=== PATIENT | male | born 1935 | race Caucasian/White ===

== ENCOUNTER 2017-04-11 14:31 | Inpatient (IN) | payer OTHER ==
[~2017-04-11] VITALS: Ht 175.3 cm; Wt 81.2 kg
--- NOTE | 2017-04-11 15:14 | NUR ---
PT BIB FAMILY C/C RT LOWER ABD PAIN STS STARTED THIS AM DR ARRIAGA AT BEDSIDE TO CHIP
--- NOTE | 2017-04-11 15:25 | NUR ---
PLEASE ENTER FULL NAMES OF MINISTER HELPER/RN Patient data collected by (MINISTER HELPER): Doni PEREZ Assessment reviewed and completed by (RN): Danielle SIMPSON
--- NOTE | 2017-04-11 15:42 | NUR ---
EMG TECHNICIAN AT BEDSIDE FOR BLOOD DRAW
[2017-04-11 16:01] LABS: BASOPHIL % 0.3 % (0-2); PLATELET COUNT 235 x10^3mcL (130-400)
[2017-04-11 16:03] LABS: RED CELL DISTRIBUTION WIDTH 14.6 % (11.5-14.5)
[2017-04-11 16:11] LABS: CALCIUM 9.2 mg/dL (8.5-10.1); CARBON DIOXIDE 32.5 mmol/L (21-32); CHLORIDE SERUM 103 mmol/L (98-107); CREATININE SERUM 1.1 mg/dL (0.7-1.3); GLUCOSE SERUM 122 mg/dL (74-106); POTASSIUM SERUM 3.9 mmol/L (3.5-5.1); SODIUM SERUM 141 mmol/L (136-145)
[2017-04-11 16:21] LABS: ALBUMIN 4.1 g/dL (3.4-5.0); ALKALINE PHOSPHATASE 53 U/L (46-116); ALT/SGPT 23 U/L (16-63); AST/SGOT 19 U/L (15-37); BILIRUBIN TOTAL 0.4 mg/dL (0.20-1.00)
[2017-04-11 16:22] LABS: C REACTIVE PROTEIN < 0.2 mg/dL (<=0.9)
[2017-04-11 16:35] LABS: T3 TOTAL 0.85 ng/mL
[2017-04-11 16:50] LABS: FREE T4 1.17 ng/dL (0.76-1.46); FREE THYROXINE INDEX 3.6 ug/dL (1.4-4.5); T4(THYROXINE) 10.4 ug/dL (4.7-13.3)
[2017-04-11 16:51] LABS: ERYTHROCYTE SED RATE 11 mm/hr (0-20)
[2017-04-11 16:53] LABS: CK-MB 2.3 ng/mL (0-3.6)
--- NOTE | 2017-04-11 16:56 | NUR ---
DR ARRIAGA AT BEDSIDE TO GO OVER PLAN OF CARE
[2017-04-11 17:55] VITALS: BP 135/81
[2017-04-11 18:15] LABS: MAGNESIUM 2.4 mg/dL (1.8-2.4); PHOSPHOROUS 2.8 mg/dL (2.5-4.9)
[2017-04-11 18:21] LABS: CHOLESTEROL/HDL RATIO 3.8
[2017-04-11] MEDS ORDERED: LATANOPROST2.5 ML OU (18:23)
[2017-04-11] MEDS ORDERED: DORZOLAMIDE HYD10 ML OU (18:23)
[2017-04-11] MEDS ORDERED: TRAZODONE50 M1 PO (18:24)
[2017-04-11] MEDS ORDERED: SYMBICORT1 AE3 INH (18:25)
--- NOTE | 2017-04-11 19:02 | NUR ---
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
[2017-04-11 19:06] VITALS: BP 157/87
--- NOTE | 2017-04-11 19:55 | NUR ---
REPORT FROM DAY SHIFT,PATIENT NOT ADMITTED YET,CHARGE NURSE SAY PATIENT GOING FOR SURGERY. AT BEDSIDE DEMANDING FOR EYEDROPS.
--- NOTE | 2017-04-11 19:55 | NUR ---
REINALDO CareyWILL BE HERE TO HELP,TO ADMIT.PATIENT.THANKS.
[2017-04-11 20:06] VITALS: BP 148/86
--- NOTE | 2017-04-11 20:16 | NUR ---
RECEIVED PATIENT FROM ED VIA GUERNEY, PATIENT ALERT AND ORIENTED, FAMILY ATBEDSIDE, NO C/O PAIN AT THIS TIME, IV ACCESS TO RIGHT HAND WNL, TELE# 10 SR, ORIENTED PATIENT TO ROOM AND SURROUNDINGS, BED IN LOW POSITION, BED RAILS UP X 2, CALL LIGHT WITHIN REACH, WILL ENDORSE CARE TO PRIMARY NURSE HERNANDEZ THOMPSON
--- NOTE | 2017-04-11 20:32 | NUR ---
LIANE LAMB GIVEN,CHECKLIST BEING COMPLETED BY LEANN.CONSENT SIGNED BY PATIENT AFTER DR LENTZ EXPLAINED PROCEDURE.SEDATION WILL BE SIGN DOWNSTAIR IN OR.REMAINS NPO.HEPLOCK 22. INTACT FROM ER.AWAITING FOR OFFENDER EMPLOYMENT SPECIALIST.
[2017-04-11 20:46] VITALS: BP 148/86
--- NOTE | 2017-04-11 20:49 | NUR ---
REPORT GIVEN TO ANA,ALSO MICHAEL FROM SURGERY.
--- NOTE | 2017-04-11 20:49 | NUR ---
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
--- NOTE | 2017-04-11 23:52 | NUR ---
PACU CALLED,PATIENT COMING BACK FROM OR,PATIENT HAD OPEN APPY,DRESSING INTACT REPORTED WITH DRESSING.
--- NOTE | 2017-04-11 23:55 | NUR ---
RECEIVED FROM PACU,PUT IN BED COMFORTABLY,VITAL SIGNS STABLE.DRESSING R LOWER QUAD.ATB STARTED.
--- NOTE | 2017-04-12 00:14 | NUR ---
PATIENT NPO XMED,GIVEN PAIN SHOT TORADOL IVP
[2017-04-12 00:51] LABS: UA SPECIFIC GRAVITY >=1.030 (1.005-1.035); microscopic required? YES; urine erythrocyte NEGATIVE (NEGATIVE)
--- NOTE | 2017-04-12 00:53 | NUR ---
SCD INTACT,WILL START HEPARIN SQ IN AM,POST OP PROTOCOL.
--- NOTE | 2017-04-12 01:14 | NUR ---
PATIENT SAYS HE WANTS ANOTHER PAIN MED,SAYS SURGERY SITE HURTING,GIVEN NORCO AT THIS TIME.
--- NOTE | 2017-04-12 01:22 | NUR ---
PATIENT YELLING NOW,WANTING ANOTHER PAIN MED,WAS JUST GIVEN PAIN PILL,WILL GIVE ANOTHER PAIN SHOT NOW,MSO4 2 MG.
--- NOTE | 2017-04-12 01:26 | NUR ---
CHARGE NURSE BUSHRA MADE AWARE THAT PATIENT JUST GIVEN MSO4 2 MG,METALLURGICAL OR MATERIALS TECHNICIAN ALSO AWARE,WAS GETTING REPORT FROM LEANN.
--- NOTE | 2017-04-12 02:15 | NUR ---
CHECKED AT THIS TIME AFTER MSO4,VERY EFFECTIVE,SLEEPING,BREATHING EASY.CALL LIGHT IN REACH.
--- NOTE | 2017-04-12 02:27 | NUR ---
CALLING UPDATE ABOUT .SAYS SHE WILL BE IN LATER TO VISIT.
--- NOTE | 2017-04-12 03:19 | NUR ---
NEW IV SITE L WRIST 20 GUAGE WITH GOOD BLOOD RETURN.IV SITE PREVIOUSLY PULLED OUT ACCIDENTALLY BY PATIENT.
--- NOTE | 2017-04-12 03:27 | NUR ---
PATIENT WANTING ANOTHER PAIN SHOT,REMINDED IT IS NOT TIME YET.WILL GIVE IN ANOTHER ONE HOUR.
--- NOTE | 2017-04-12 04:35 | NUR ---
BED ALARM ON,FOUND PATIENT SITTING AT EDGE OF BED,SAYS HE HAS TO URINATE,MADE AWARE TTHAT HE HAS A VILLAGRAN CATH.CLOUDY URINE.ATB SCHEDULED.
--- NOTE | 2017-04-12 04:39 | NUR ---
SURGERY SITE PAIN,GIVEN MSO4 2 MG.R LOWER QUADRANT DRESSING DRY AND INTACT.NO BLEEDING NOTED.BED ALARM BACK FOR SAFETY.
[2017-04-12 05:24] VITALS: BP 98/63
--- NOTE | 2017-04-12 05:52 | NUR ---
PATIENT AMBULATED TO RESTROOM,WITH ASSIST,REMINDED HE HAS VILLAGRAN.NOT PASSING GAS YET.DRESSING INTACT.WILL ENDORSE TO NEXT SHIFT.
--- NOTE | 2017-04-12 06:23 | NUR ---
PATIENT CALLED.SHE SAYS THAT SHE HAS ANOTHER EYEDROP AT HOME,SHE WILL BRING IT,WANTED GIVEN TO PATIENT.WILL ENDORSE TO NEXT SHIFT.
[2017-04-12 07:01] LABS: BASOPHIL % 0.1 % (0-2); PLATELET COUNT 221 x10^3mcL (130-400); RED CELL DISTRIBUTION WIDTH 14.3 % (11.5-14.5)
--- NOTE | 2017-04-12 07:05 | NUR ---
AWAKE AND ALERT, ORIENTED X3, ABLE TO MAKE NEEDS KNOWN, FOLOWS SIMPLE COMMANDS, NOTED W/ RESTLESS LEGS, REPORTS "MY LEGS ALWAYS SHAKE," ACTIVE BOWEL SOUNDS X4 QUADS, DRY DRESSING NOTED AT RLQ, NO ACTIVE BLEEDING OR DRAINAGE NOTED, REPORTS ABD PAIN 2/10, INCREASED WITH MOVEMENT, DENIES N&V, ON TELE #10 SR ON MONITOR, DENIES HEART RELATED PAIN OR DISCOMFORT, IV AT L/WRIST INFUSING NS AT 120ML/HR, VILLAGRAN CATH DRAINING YELLOW URINE TO GRAVITY, REORIENTED TO ROOM AND CALL LIGHT, BED ALARM ON, PT IS NEAR NURSING STATION, BED AT LOWEST SETTING, WILL CONTINUE TO PROVIDE CARE.
[2017-04-12 07:13] VITALS: Ht 175.3 cm; Wt 81.2 kg
[2017-04-12 07:30] LABS: CALCIUM 8.4 mg/dL (8.5-10.1); CARBON DIOXIDE 29.6 mmol/L (21-32); CHLORIDE SERUM 106 mmol/L (98-107); CREATININE SERUM 1.3 mg/dL (0.7-1.3); GLUCOSE SERUM 119 mg/dL (74-106); MAGNESIUM 2.1 mg/dL (1.8-2.4); PHOSPHOROUS 4.2 mg/dL (2.5-4.9); POTASSIUM SERUM 4.1 mmol/L (3.5-5.1); SODIUM SERUM 141 mmol/L (136-145)
[2017-04-12 09:30] VITALS: BP 105/56
--- NOTE | 2017-04-12 10:38 | NUR ---
AT BEDSIDE, PATIENT RESTING IN BED, REPORTS ABD PAIN 2/10, CONTROLLED AT THIS LEVEL, ABLE TO TAKE PO MEDS THIS AM, CALL LIGHT WITHIN REACH, WILL CONTINUE TO PROVIDE CARE.
--- NOTE | 2017-04-12 10:40 | NUR ---
PATIENTS'S REQUESTING TO SPEAK WITH MD, DR MCKINNON WILL COMING UP TO THE ROOM.
--- NOTE | 2017-04-12 13:06 | NUR ---
C/O ABD PAIN 8/10, ASSISTED TO POSITION OF COMFORT, PAIN GREEN CHAIN WORKER ORDERED, AT BEDSIDE, WILL CONTINUE TO MONITOR FOR SAFETY AND COMFORT.
[2017-04-12 14:05] VITALS: BP 97/56
[2017-04-12 18:40] VITALS: BP 98/54
--- NOTE | 2017-04-12 18:40 | NUR ---
TOLERATING CLEAR LIQUIDS MEAL, REPORTS ABD PAIN 3/10, WORSE WITH MOVEMENT, ASSISTED TO CHAIR FOR DINNER, SURGICAL SITE WITH FIRST DRESSING, DRY, NO ACTIVE BLEEDING OR DRAINAGE NOTED, D/C VILLAGRAN CATH AND AMBULATE PT 24HRS POST SURGERY, PER DR SPANN, WILL BE BRINGING PATIENT'S GLAUCOMA MEDICATIONS IN THE MORNING, NO OTHER SIGNIFICANT CHANGES NOTED, CARE ENDORSED TO NIGHT NURSE.
--- NOTE | 2017-04-12 19:59 | NUR ---
PT IS A/O X3, WITH FORGETFUL, VERBAL RESPONSIVE, ABLE TO TELL WHAT HE NEEDS, LUNG SOUND CLEAR BILATERAL, NO COUGH, NO SOB, PT IS ON 2L/MIN O2 VIA NC. PO2 98%, PT IS ON TELE 10, ST. DENY ANY CHEST PAIN OR DISCOMFORT, BOWEL SOUND PRESENT ALL 4 QUADRANTS, NO DISTENTION, NO TENDER. S/P SUGERY AT RIGHT LOW QUADRANTS, COVERED WITH DRY DRESSING, NO BLEEDING, NO DRAINAGE, PEDAL PULSE PRESENT BOTH FEET, NO EDEMA NOTED, IV AT LEFT WRIST, NO LEAKING, NO INFILTRATION, ALL ADLS ASSIST, ALL NEED MET, CALL LIGHT IN REACH, WILL CONTINUE TO MONITOR.
[2017-04-12 20:57] VITALS: BP 98/58
[2017-04-13 05:16] VITALS: BP 118/66
--- NOTE | 2017-04-13 05:31 | NUR ---
PT IS A/O X2, FORGETFUL, CONFUSED, NO RESPIRATORY DISTRESS, NO S/S OF CHEST PAIN, C/O ABD PAIN WHEN TOUCH, FINISHED BLADDER TRAIN, AND REMOVED VILLAGRAN CATH. IV AT LEFT WRIST IS INFILTRATION. AND RE INSERT THE IV TO RIGHT FA, DR. WIGGINS MADE AWARE, ALL ADLS ASSIST, ALL NEED MET, CALL LIGHT IN REACH, WILL CONTINUE TO MONITOR.
[2017-04-13 07:24] LABS: CALCIUM 8.4 mg/dL (8.5-10.1); CARBON DIOXIDE 27.4 mmol/L (21-32); CHLORIDE SERUM 104 mmol/L (98-107); CREATININE SERUM 1.2 mg/dL (0.7-1.3); GLUCOSE SERUM 137 mg/dL (74-106); MAGNESIUM 2.2 mg/dL (1.8-2.4); PHOSPHOROUS 3.3 mg/dL (2.5-4.9); SODIUM SERUM 138 mmol/L (136-145)
--- NOTE | 2017-04-13 07:38 | NUR ---
RECEIVED PT FROM NIGHT NURSE IN NO ACUTE DISTRESS. RESPIRATIONS EVEN AND UNLABORED ON 4L VIA NC. AAOX4. IVF INFUSING AT BEDSIDE. BED IN LOWEST POSITION. CALL LIGHT WITHIN REACH. WILL CONTINUE TO MONITOR.
[2017-04-13 08:11] LABS: BASOPHIL % 0.9 % (0-2); PLATELET COUNT 197 x10^3mcL (130-400); RED CELL DISTRIBUTION WIDTH 14.3 % (11.5-14.5)
[2017-04-13 08:52] VITALS: BP 107/66
[2017-04-13 12:17] VITALS: BP 141/71
--- NOTE | 2017-04-13 12:51 | NUR ---
PT SITTING UP IN CHAIR AT BEDSIDE IN NO ACUTE DISTRESS. RESPIRATIONS EVEN AND UNLABORED ON 3L VIA NC. AAOX4. VILLAGRAN IN PLACE, DRAINING YELLOW URINE. IVF INFUSING AT BEDSIDE. FAMILY AT BEDSIDE. BED IN LOWEST POSITION. CALL LIGHT WITHIN REACH. WILL CONTINUE TO MONITOR.
[2017-04-13 16:40] VITALS: BP 137/62
--- NOTE | 2017-04-13 18:43 | NUR ---
PT SITTING UP IN CHAIR IN NO ACUTE DISTRESS. RESPIRATIONS EVEN AND UNLABORED ON 2L VIA NC. AAOX4. NORCO GIVEN FOR 8/10 PAIN TO INCISION SITE. IVF INFUSING AT BEDSIDE. FAMILY AT BEDSIDE. BED IN LOWEST POSITION. CALL LIGHT WITHIN REACH. WILL ENDORSE TO NIGHT NURSE.
--- NOTE | 2017-04-13 19:45 | NUR ---
RECEIVED PT AWAKE AND ALERT. AOX3. VERBAL WITH CLEAR SPEECH. ON O2 3L VIA NC 97%. NO S/S OF RESPIRATORY DISTRESS NOTED. NOTED LUNGS WITH EXPIRATORY WHEEZE. DENIES ANY SOB. ON TELE 10, NSR. DENIES ANY CHEST PAIN. ABD ROUND AND DISTENDED. BOWEL SOUNDS HYPOACTIVE. STATES PAIN TO RLQ TOLERABLE AT THIS TIME. DRESSING IN PLACE AND CDI. NO S/S OF INFECTION NOTED. NOTED SWELLING TO LUE. IV TO RIGHT FA PATENT AND INTACT. IV NS INFUSING WELL. NO S/S OF INFECTION NOTED. NO PEDAL EDEMA NOTED. NO S/S OF DISTRESS NOTED. SPOUSE AT BEDSIDE. BED IN LOW POSITION. CALL LIGHT WITHIN REACH. WILL CONTINUE TO MONITOR.
[2017-04-13 20:36] VITALS: BP 121/73
--- NOTE | 2017-04-14 00:30 | NUR ---
PT RESTING IN BED WITH EYES CLOSED. NO S/S OF RESPIRATORY DISTRESS NOTED. BREATHING EQUAL AND UNLABORED. IV PATENT AND INFUSING WELL. RESTING COMFORTABLY WITH RELAXED FACIAL FEATURES. CALL LIGHT WITHIN REACH. BED ALARM ON. CALL LIGHT WITHIN REACH. WILL CONTINUE TO MONITOR.
[2017-04-14 05:24] VITALS: BP 140/85
[2017-04-14 06:23] LABS: BASOPHIL % 0.3 % (0-2); PLATELET COUNT 201 x10^3mcL (130-400)
[2017-04-14 06:31] LABS: CALCIUM 8.3 mg/dL (8.5-10.1); CARBON DIOXIDE 33.1 mmol/L (21-32); CHLORIDE SERUM 102 mmol/L (98-107); CREATININE SERUM 1.2 mg/dL (0.7-1.3); GLUCOSE SERUM 103 mg/dL (74-106); POTASSIUM SERUM 4.1 mmol/L (3.5-5.1); SODIUM SERUM 138 mmol/L (136-145)
[2017-04-14 06:39] LABS: ALBUMIN 2.8 g/dL (3.4-5.0)
--- NOTE | 2017-04-14 06:40 | NUR ---
PT SLEPT INTERMITTENTLY THROUGHOUT THE NIGHT. AWAKE AND ALERT AT THIS TIME. NO S/S OF RESPIRATORY DISTRESS NOTED ON 2L O2 VIA NC. NOTED PT PULLED OUT IV. NEW IV STARTED TO RIGHT FA. IV PATENT AND INFUSING WELL. DRESSING REMAINS CDI TO RLQ. NO S/S OF DISTRESS NOTED. CALL LIGHT WITHIN REACH. WILL CONTINUE TO MONITOR.
--- NOTE | 2017-04-14 07:28 | NUR ---
RECEIVED PT FROM NIGHT NURSE IN NO ACUTE DISTRESS. PT ASLEEP, RESPIRATIONS EVEN AND UNLABORED ON RA. VILLAGRAN IN PLACE DRAINING YELLOW URINE. IVF INFUSING AT BEDSIDE. BED IN LOWEST POSITION. CALL LIGHT WITHIN REACH.
[2017-04-14 09:53] VITALS: BP 136/74
--- NOTE | 2017-04-14 13:00 | NUR ---
PT RESTING IN BED IN NO ACUTE DISTRESS. RESPRIATIONS EVEN AND UNLABORED ON 3L VIA NC. NORCO GIVEN FOR PAIN TO RLQ. IVF INFUSING AT BEDSIDE. FAMILY AT BEDSIDE. BED IN LOWES POSITION. CALL LIGHT WITHIN REACH. WILL CONTINUE TO MONITOR.
[2017-04-14 13:13] VITALS: BP 149/79
[2017-04-14 16:50] VITALS: BP 151/84
--- NOTE | 2017-04-14 17:00 | NUR ---
PT GIVEN FLEET ENEMA. TOLERATED WELL. MULTIPLE HEMORHOIDS NOTED. PT HAD LOOSE BOWEL MOVEMENT.
--- NOTE | 2017-04-14 18:50 | NUR ---
PT RESTING IN BED IN NO ACUTE DISTRESS. RESPIRATIONS EVEN AND UNLABORED ON RA. AAOX4. DENIES PAIN AT THIS TIME.IVF INFUSING AT BEDSIDE. FAMILY AT BEDSIDE. BED IN LOWEST POSITION. CALL LIGHT WITHIN REACH. WILL CONTINUE TO MONITOR.
--- NOTE | 2017-04-14 19:32 | NUR ---
RECEIVED PT FROM PREVIOUS SHIFT. PT A/OX4. SITTING UP IN CHAIR. DENIES SOB ON 2LNC. AT BEDSIDE. DENIES PAIN. IV HEPLOCLED TO RFA, FLUSHING WELL. ABD DRESSING S/P APPENDECTOMY, CDI. CALL LIGHT WITHIN REACH, BED IN LOW POSITION. WILL CONTINUE TO MONITOR.
[2017-04-14 22:05] VITALS: BP 167/98
--- NOTE | 2017-04-15 02:01 | NUR ---
PT RESTING AT THIS TIME IN NO ACUTE DISTRESS. RR EVEN AND UNLABORED. IV PATENT. CALL LIGHT WITHIN REACH, BED IN LOW POSITION. WILL CONTINUE TO MONITOR.
[2017-04-15 05:52] VITALS: BP 175/89
[2017-04-15 06:27] LABS: BASOPHIL % 0.2 % (0-2); PLATELET COUNT 237 x10^3mcL (130-400); RED CELL DISTRIBUTION WIDTH 14.1 % (11.5-14.5)
[2017-04-15 06:53] LABS: CALCIUM 8.7 mg/dL (8.5-10.1); CARBON DIOXIDE 32.1 mmol/L (21-32); CHLORIDE SERUM 104 mmol/L (98-107); CREATININE SERUM 0.9 mg/dL (0.7-1.3); GLUCOSE SERUM 90 mg/dL (74-106); POTASSIUM SERUM 3.9 mmol/L (3.5-5.1); SODIUM SERUM 142 mmol/L (136-145)
--- NOTE | 2017-04-15 07:25 | NUR ---
AAOX3, ABLE TO VERBALIZE NEEDS WITH CLEAR AND COHERENT SPEECH, ACTIVE BOWEL SOUNDS X4 QUADS, ABD TENDER TO TOUCH, SOFT, NONDISTENDED, SURGICAL SITE KANDACE, NO S&S OF INFECTION NOTED, NOHEMI WITH APPROXIMATED EDGES, ON TELE #10 SR ON MONITOR DENIES HEART RELATED PAIN OR DISCOMFORT, CALL LIGHT WITHIN REACH, [facility] AT [facility], WILL CONTINUE TO PROVIDE CARE.
--- NOTE | 2017-04-15 08:50 | NUR ---
PT AND FAMILY MEMBER EDUCATED ON HOW TO USE HOME O2. RN NOTIFIED.
--- NOTE | 2017-04-15 09:06 | NUR ---
ROUNDS WITH DR RAMIREZ AND MEDICAL TEAM, UPDATED PT ON CURRENT POC. PT ABLE TO TAKE ALL PO MEDS WITHOUT GI DISTRESS, CALL LIGHT WITHIN REACH, WILL CONTINUE TO PROVIDE CARE.
[2017-04-15 09:46] VITALS: BP 116/70
--- NOTE | 2017-04-15 11:32 | NUR ---
Dorzolamide HCl Opth. Soln. 5 Ml Btl NOT AVAILABLE IN PT'S CASSETTE, PER PHARM, MED "SHOULD BE IN PT'S CASSETTE," PT'S REPORTS HAVING MED WITH HER AND APPLYING DROPS TO PATIENT "EVERY MORNING AND EVERY EVENING" POLICIES AND PROCEDURES EXPLAINED, VERBALIZED UNDERSTANDING, WILL F/U WITH SALES MGRDONNA ELIZABETH.
--- NOTE | 2017-04-15 11:50 | NUR ---
EDUCATION PROVIDED ON USE OF HOME OXYGEN BY RESPIRATORY THERAPIST, AND PATIENT ABLE TO SUCCESSFULLY DEMONSTRATE USE OF OXYGEN.
[2017-04-15 12:51] VITALS: BP 129/73
--- NOTE | 2017-04-15 15:05 | NUR ---
TRANSFERRED FROM CHAIR TO BED, C/O ABD PAIN 01/22, ASSISTED TO POSITION OF COMFORT, PAIN MED GIVEN ORDERED.
--- NOTE | 2017-04-15 15:14 | NUR ---
DR RASHEED AT BEDSIDE TO UPDATE PT AND ON CURRENT POC.
[2017-04-15 17:44] VITALS: BP 113/70
[2017-04-15 18:10] VITALS: BP 113/70
--- NOTE | 2017-04-15 18:46 | NUR ---
PT IS TO BE DISCHARGED 04/16/17, AWAITING FOR DELIVERY OF BED, OXYGEN/CONCENTRATOR AT HOME, PT REPORTS ABD PAIN 0/10 AT REST, INCREASED WITH MOVEMENT, HAS BEEN TOLERATING CCHO DIET WITHOUT GI DISTRESS EYE DROPS IN PATIENT'S CASSETTE, PLEASE APPLY ORDERED, NO OTHER SIGNIFICANT CHANGES NOTED, CARE ENDORSED TO NIGHT NURSE.
--- NOTE | 2017-04-15 19:30 | NUR ---
PT. IS A/O x4. NO COMPLAIN OF CHEST PAIN OR PRESSURE. TELE #10, NSR. NO EDEMA NOTED. PEDIAL PULSES PRESENT. LUNG SOUNDS DIMINISHED BLL, PT ON NASAL CANNULA 2L, SPO2 95. NO SIGNS OF RESP. DISTRESS. BOWEL SOUNDS PRESENT x4, TENDERNESS ON RIGHT SIDE OF ABDOMEN WERE NOHEMI ARE LOCATED. NOHEMI KANDACE, WITH NO REDENESS OR DRAINAGE NOTED. NOHEMI ARE CLEAN AND INTACT. REPOSITIONED PT TO A MORE COMFORTABLE POSITION. IV ON RFA WITH ANTIBIOTICS RUNNING. WILL SALINE LOCK ONCE COMPLETED PER MD ORDER. ALL ADLS MET. ROOM MADE CLEAR OF ANY FALL RISKS. CALL LIGHT WITHIN REACH. PT. SITTING UP IN CHAIR. WILL CONTINUE TO MONTIOR PT.
[2017-04-15 21:35] VITALS: BP 116/71
[2017-04-16 04:58] VITALS: BP 120/84
--- NOTE | 2017-04-16 05:10 | NUR ---
PT IS SLEEPING IN BED. NO SIGN OF DISTRESS NOTED. NASAL CANUAL ON 2L. IV IS SALINE LOCKED. BED IN LOWEST SETTING. CALL LIGHT WITHIN REACH. WILL CONTINUE TO MONITOR PT.
[2017-04-16 06:13] LABS: BASOPHIL % 0.6 % (0-2); PLATELET COUNT 237 x10^3mcL (130-400); RED CELL DISTRIBUTION WIDTH 14.1 % (11.5-14.5)
[2017-04-16 06:25] LABS: CALCIUM 8.7 mg/dL (8.5-10.1); CHLORIDE SERUM 104 mmol/L (98-107); CREATININE SERUM 1.1 mg/dL (0.7-1.3); GLUCOSE SERUM 85 mg/dL (74-106); POTASSIUM SERUM 3.9 mmol/L (3.5-5.1); SODIUM SERUM 141 mmol/L (136-145)
--- NOTE | 2017-04-16 07:20 | NUR ---
AAOX3 ABLE TO VERBALIZE NEEDS WITH CLEAR SPEECH, FOLLOWS SIMPLE COMMANDS, ACTIVE BOWEL SOUNDS [id number], ABD SOFT, SLIGHTLY DISTENDED, TENDER TO TOUCH, NOHEMI AT SURGICAL SITE, NO ERYTHEMA NOTED, LEARNING AND DEVELOPMENT MANAGER, IV AT RFA INFUSING NS AT 10ML/HR, REORIENTED TO ROOM AND CALL LIGHT, WILL CONTINUE TO PROVIDE CARE.
[2017-04-16 10:34] VITALS: BP 133/72
--- NOTE | 2017-04-16 10:42 | NUR ---
PATIENT GOING DOWNSTAIRS WITH HOME HEALTH PT FOR STAIRS TRAINING.
[2017-04-16] MEDS ORDERED: COLACE100 MG PO (14:47)
[2017-04-16 14:48] VITALS: BP 129/74
[2017-04-16] MEDS ORDERED: NOR10T PO (15:11)
[2017-04-16 15:14] VITALS: BP 129/74
[2017-04-16] MEDS ORDERED: IPRATROPIUM BROM3 M2 HHN (16:46)
--- NOTE | 2017-04-16 17:36 | NUR ---
PHYSICAL THERAPY DAILY NOTES CO-SIGN All documentation done by the Heel Cutter for 04/16/17 has been reviewed. I agree with the documentation. Reviewed/Co-Signed by: Autumn Trujillo Documentation Done by: Lynette Mota PTA (Registry) Patient darya tx well, progressing towards goals, but cont to demo overall fatigue and decreased activity darya, but has improved overall with all functional mobility. Cont with PT POC as darya/safe.
--- NOTE | 2017-04-16 20:28 | NUR ---
LATE ENTRY FOR 1730: PATIENT DISCHARGE HOME, REVIEWED DISCHARGE INSTRUCTIONS WITH PATIENT AND , INCLUDING FOLLOW UP APPOINTMENTS WITH PCP AND SURGEON, AND PATIENT VERBALIZED UNDERSTANDING OF DISCHARGE INSTRUCTIONS. IV D/C'D, CATH TIP INTACT, NO BLEEDING OR PHLEBITIS NOTED, COVERED WITH BANDAID. TELE MONITOR REMOVED. PATIENT ASSISTED DOWNSTAIRS BY RESOURCE RN ADRIANA AND .
== END 2017-04-16 17:02 | disposition home health service (06) | DRG 341 ==
LOC: ED 14:31 → DU 17:08
PROVIDERS: Family Medicine; Specialist; Surgery; ADMIT Family Medicine
PROC: 0DTJ0ZZ Resection of Appendix, Open Approach (ICD-10-PCS; principal; 2017-04-11 21:00)
DX: K35.80 Unspecified acute appendicitis (principal); N17.0 Acute kidney failure with tubular necrosis; E43 Unspecified severe protein-calorie malnutrition; J44.9 Chronic obstructive pulmonary disease, unspecified; R73.03 Prediabetes; K57.90 Diverticulosis of intestine, part unspecified, without perforation or abscess without bleeding; N28.1 Cyst of kidney, acquired; K64.4 Residual hemorrhoidal skin tags; K80.20 Calculus of gallbladder without cholecystitis without obstruction; E86.0 Dehydration; G47.00 Insomnia, unspecified; E78.5 Hyperlipidemia, unspecified; R80.9 Proteinuria, unspecified; H40.9 Unspecified glaucoma; Z68.24 Body mass index [BMI] 24.0-24.9, adult; Z96.611 Presence of right artificial shoulder joint
CPT/HCPCS: 36600; 82962; 83880; 84439; 97110-GP; 97116-GP; 97530-GP; J1644; J1885; J1940; J2270; J2405; J2543; J3010; J3490; J7030; J7120; J7620; J7626; Q0092